=== PATIENT | female | born 1935 | race Caucasian/White ===

== ENCOUNTER 2018-04-10 10:43 | Emergency (ER) | payer MEDICARE, BC, SELFPAY ==
[2018-04-10 10:44] VITALS: BP 157/83; PULSE 66; RESP 18; TEMP 36.6; O2SAT 99; BMI 25.0
--- NOTE | 2018-04-10 10:50 | EKG12_ITS ---
Test Reason : SOB Blood Pressure : / mmHG Vent. Rate : 060 BPM Atrial Rate : 060 BPM P-R Int : 186 ms QRS Dur : 098 ms QT Int : 426 ms P-R-T Axes : 060 015 032 degrees QTc Int : 426 ms Normal sinus rhythm with sinus arrhythmia Normal ECG Confirmed by CASSIE MOLINA, BRENDAN ([id number]), website/blog editor TREVOR CHOI ([id number]) on 04/15/2018 3:18:00 PM Referred By: JAYCEE Confirmed By:BRENDAN MATTHEWS MD
--- NOTE | 2018-04-10 10:50 | ED.VISSUMM ---
- ER Visit Summary Date of Service: 04/10/18 Chief Complaint: Shortness of breath History of Present Illness: The patient is a 83 F presents to the emergency department shortness of breath. Patient states that she is very active. She states she walks 2 miles 3 times a week. She states today, she finished her walk this felt short of breath. She felt that she can catch her breath. She was not nauseated or diaphoretic. She had no chest pain, neck pain, or arm tightness. She denies any fatigue. Patient went to urgent care. She had an EKG done which was suspected abnormal and she was sent here for further evaluation. She has no history of coronary vascular disease. She has no history of smoking. She has no history of hypertension or hyperlipidemia. Her only medical history is for epilepsy. She denies any exertional dyspnea. She denies orthopnea. She had no chest tightness with her recent exercise. Physical Examination: Vital signs reviewed General: Well-nourished, well-developed Head: Normocephalic, atraumatic Eyes: Pupils equal and reactive, extraocular muscles intact Neck, supple, no lymphadenopathy Heart: Regular rate and rhythm Respiratory: No distress, clear bilaterally Abdomen: Soft, nontender, nondistended, no peritoneal signs Back: Nontender Extremities: Nontender, no edema, no cords Skin: Normal color no rash Neuro: Alert and oriented, no focal or lateralizing deficits Test Results: [] Emergency Department Course and Treatment: I did review the patient's EKG from urgent care on arrival. The computer read was questionable anterior lateral infarct. However, she does have R waves before the Q waves. There is no acute ischemic change. EKG was repeated on arrival. This EKG is normal. There is no acute ischemia. [place] and intervals are normal. There is Q waves in lead III, but they are not contiguous. The patient has had no chest pain. She states that she felt mildly short of breath after exercising today. It did not radiate into her neck under her arm. She does not smoke. She has no history of coronary vascular disease. Screening labs were unremarkable. Cardiac enzymes are normal. Her x-ray is unremarkable. At this time, I do feel the patient is very low risk for acute coronary syndrome. She has [place] no pain. She has had no dyspnea while here. It was only after that she had exercised. At this time, I do feel that she is safe for outpatient follow-up for potential stress testing. The patient is comfortable with this plan of care. Treatment Plan: [] Disposition: Discharge Impression: 1. Post exertional dyspnea-resolved This note was generated with [employer] dictation software. It may contain incorrect words, spelling, and punctuation that were not noted in review of the chart prior to signing ED Disposition - Plan for ED Patient: Chief Complaint: Shortness of Breath Instructions: ED Dyspnea Shortness of Breath Referrals: Bud Portillo MD [Primary Care Provider] -
--- NOTE | 2018-04-10 10:58 | RAD_ITS ---
STUDY: X-RAY CHEST REASON FOR EXAM: Female, 83 years old. Chest pain TECHNIQUE: Single AP portable view of the chest. COMPARISON: None. FINDINGS: Calcified granuloma is seen in the right lung base measures 6 mm. There is no demonstrated pleural abnormality. Normal size heart. Normal mediastinum and [place]. Normal visualized pulmonary arteries. There is atherosclerotic tortuosity of the aortic arch and descending thoracic aorta. Normal visualized thoracic spine. There is degenerative osteoarthritis of the bilateral shoulders. There is no demonstrated abnormality of the visualized soft tissue structures of the upper abdomen. RAD/Chest 1 View (Portable) IMPRESSION: Degenerative changes, as described above. No demonstrated acute cardiopulmonary process. Electronically Signed: Maynor Fierro MD at 11:18 EDT Tel , Service support ,
[2018-04-10] MEDS: Aspirin 81 MG TAB.CHEW 324 MG PO (11:06)
[2018-04-10 11:07] VITALS: BP 131/79; PULSE 70; RESP 28; O2SAT 98
[2018-04-10 11:08] VITALS: O2SAT 97
[2018-04-10 11:08] LABS: Absolute Lymphocyte Count 1.64 X10^3/ul (0.83-4.51); Basophil# 0.06 X10^3/uL; Basophil% 0.7 % (0-1); Eosinophils% 2.3 % (0-5); Hematocrit 45.3 % (37-47); Hemoglobin 15.2 g/dl (12.0-15.0); Lymphocyte # 1.64 X10^3/ul (4.0); Lymphocyte % 18.9 % (19-41); Mean Corp Hgb Conc 33.6 g/gl (32-36); Mean Corpuscular Volume 95.4 fL (81-99); Mean Platelet Vol. 9.3 fl (6.2-12.0); Monocyte# 0.81 X10^3/uL; Monocyte% 9.3 % (0-10); Neutrophil # 5.95 X10^3/uL (2.7-7.7); Neutrophil % 68.6 % (47-70); Platelet Count 299 K/mm3 (150-450); RBC Distribution Width SD 47.7 fl (35.1-43.9); Red Blood Count 4.75 M/mm3 (4.2-5.4); White Blood Count 8.7 K/mm3 (4.4-11.0)
[2018-04-10 11:09] LABS: POSITIVE COUNT NO; POSITIVE DIFFERENTIAL NO; POSITIVE MORPHOLOGY NO
[2018-04-10 11:27] LABS: Anion Gap 6 (5-15); BUN 24 mg/dL (7-18); BUN/Creat Ratio 21.8 RATIO (10-20); Calcium,Total 9.7 mg/dL (8.5-10.1); Chloride 105 mmol/L (98-107); EST Glomerular Filtration Rate 51 mL/min (>60); Est Glom Filt Rate - Afr Amer 61 mL/min (>60); Estimated Creatinine Clearance 36.09 ml/min; Glucose 102 mg/dL (74-106); Potassium 4.3 mmol/L (3.5-5.1); Sodium Level 138 mmol/L (136-145)
[2018-04-10 11:51] VITALS: BP 131/79; PULSE 67; RESP 16; O2SAT 97
--- NOTE | 2018-04-11 10:28 | CM.ED ---
ED CALLBACK: Follow-up call placed to patient. Patient states I feel fine. I felt fine yesterday. Patient states she is following up with Dr. Portillo today. Patient denies any needs or questions at this time.
== END 2018-04-10 11:52 | disposition home or self-care (01) ==
LOC: ED 11:40
PROVIDERS: Emergency Provider Emergency Medicine; Family Provider Family Medicine; PCP Family Medicine
DX: R06.09 Other forms of dyspnea (principal)
CPT/HCPCS: 71045; 80048; 84484; 85025; 93005; 99284; A4216